=== PATIENT | male | born 1950 | race Caucasian/White ===

== ENCOUNTER → 2018-08-11 | Outpatient (CLI) | payer MEDICARE, OTHER ==
[2018-08-18 00:07] LABS: ASPERGILLUS FLAVUS ABY Negative (Neg:<1:1); ASPERGILLUS FUMIGATUS ABY Negative (Neg:<1:1); ASPERGILLUS NIGER ABY Negative (Neg:<1:1); E001-IGE CAT EPITHELIUM/DANDER <0.10 kU/L (Class 0); E005-IGE DOG DANDER/HAIR/EPITH <0.10 kU/L (Class 0); E070-IGE GOOSE FEATHERS <0.10 kU/L (Class 0); G003-IGE ORCHARD GRASS <0.10 kU/L (Class 0); G006-IGE TIMOTHY GRASS <0.10 kU/L (Class 0); G008-IGE BLUEGRASS, KENTUCKY <0.10 kU/L (Class 0); M002-IGE CLADOSPORIUM herbarum <0.10 kU/L (Class 0); M003-IGE D pteronyssinus <0.10 kU/L (Class 0); M006-IGE ALTERNARIA alternata <0.10 kU/L (Class 0); MOO5-IGE CANDIDA albican <0.10 kU/L (Class 0); T001-IGE MAPLE/BOX ELDER <0.10 kU/L (Class 0); T003-IGE COMMON SILVER BIRCH <0.10 kU/L (Class 0); T005-IGE BEECH (AMERICAN) <0.10 kU/L (Class 0); T007-IGE OAK, WHITE <0.10 kU/L (Class 0); T014-IGE COTTONWOOD <0.10 kU/L (Class 0); W001-IGE RAGWEED, SHORT <0.10 kU/L (Class 0); W009-IGE PLANTAIN,ENGLISH <0.10 kU/L (Class 0); W010-IGE LAMB'S QUARTER <0.10 kU/L (Class 0); W012-IGE GOLDENROD <0.10 kU/L (Class 0)
== END ==
LOC: M SMT 10:59
PROVIDERS: ATTEND Allergy & Immunology Allergy
DX: J30.9 Allergic rhinitis, unspecified (principal)

== ENCOUNTER → 2018-09-13 | Outpatient (REF) | payer MEDICARE, OTHER | LOC: M LAB REF 16:18 | PROVIDERS: ATTEND Nurse Practitioner Family | DX: L08.9 Local infection of the skin and subcutaneous tissue, unspecified (principal) ==

== ENCOUNTER → 2019-03-23 | Outpatient (REF) | payer MEDICARE, OTHER | LOC: M LAB REF 15:04 | PROVIDERS: ATTEND Podiatrist | DX: M79.672 Pain in left foot (principal); L03.039 Cellulitis of unspecified toe ==

== ENCOUNTER → 2019-04-26 | Outpatient (REF) | payer MEDICARE, OTHER | LOC: M LAB REF 13:43 | PROVIDERS: ATTEND Podiatrist | DX: L03.039 Cellulitis of unspecified toe (principal); M79.671 Pain in right foot ==

== ENCOUNTER → 2020-07-05 | Outpatient (CLI) | payer MEDICARE, OTHER ==
[~2020-07-05] MED LIST: PROHANCE 279.3MG/ML 15ML VIAL As Ordered ONE; PROHANCE 279.3MG/ML 5ML VIAL As Ordered ONE
--- NOTE | 2020-07-05 17:03 | REP ---
INDICATION: RISING PSA LEVELS-ATTN PROSTATE. COMPARISON: None. TECHNIQUE: Using a phased array surface coil, small opzwj-ux-gvxp imaging was acquired using T2 weighted scans in the axial, coronal, and sagittal imaging planes. Small hpepo-sp-ieih diffusion-weighted sequences are acquired. Small dqqfz-lc-swvt axial T1 weighted scans are acquired dynamically before and after the intravenous administration of 20 mL of ProHance. Imaging is reviewed using the [employer] computer-aided detection system. FINDINGS: No suspicious bone lesion is seen. There appear to be a few of scattered bone islands in the visualized osseous structures. There is a left inguinal hernia containing fat. No adenopathy or free fluid is seen in the pelvis. Prostate is enlarged. There is heterogeneous nodular signal throughout compatible with benign prostatic hypertrophy. The prostate itself measures 5.6 x 4.6 by 5.8 cm for total volume of 79.93 cc. The seminal vesicles appear symmetrical and unremarkable. Four regions of interest are identified for MR-ultrasound fusion biopsy. The most suspicious is in the left apical and mid medial peripheral zone with an oval area of hypointense T2 signal and diffusion weighted signal demonstrating diffuse type 3 washout enhancement. The area measures 2.6 x 0.5 x 2.8 cm. Total volume is 2.74 cc. Overall level of suspicion is 4/5 with clinically significant cancer likely to be present. A 2nd in the right apical medial peripheral zone there is a more ill-defined area of T2 and DWI hypointensity with areas of type 3 enhancement. This area measures 1.7 x 0.7 x 1.4 cm for total volume of 0.97 cc. Overall level suspicion is 3/5 a clinically significant cancer quit the cul. Third in the left base and mid transitional zone there is heterogeneous predominantly low T2 and DWI signal with areas of heterogeneous type 3 enhancement. This measures 2.9 x 1.8 x 2.8 cm for total volume of 6.25 cc. Overall level of suspicion is 3/5 with clinically significant cancer equivocal. Finally in the right basilar transitional zone there is relatively ill-defined mildly hypointense signal on both T2 and diffusion-weighted images. There are areas of heterogeneous type 3 enhancement. The area measures 2.3 x 1.4 x 1.7 cm for total volume of 3.89 cc. Overall level of suspicion is 3/5 a clinically significant cancer equivocal. IMPRESSION: Enlarged prostate. Four regions of interest identified for MRI-ultrasound fusion biopsy. The most suspicious is in the left apical and mid medial peripheral zone as discussed above. <Electronically signed by Kelvin Banda > 07/05/20 [id number]
== END ==
LOC: M RAD 14:51
PROVIDERS: ATTEND Physician Assistant
DX: R97.20 Elevated prostate specific antigen [PSA] (principal)
CPT/HCPCS: 72197; A9576